=== PATIENT | male | born 1945 | race Caucasian/White ===

== ENCOUNTER 2018-04-17 10:24 | Emergency (ER) | payer MEDICARE, MEDICAID ==
[~2018-04-17] VITALS: Ht 160 cm; Wt 58.0 kg
[2018-04-17 10:39] VITALS: BP 110/73
[2018-04-17] MEDS ORDERED: ALBUTEROL (0.083%) 2.5MG/3ML NEB HHN STA (15:40)
[2018-04-17] MEDS ORDERED: IPRATROPIUM BROMIDE (0.02%) 0.5MG/2.5ML NEB HHN STA (15:40)
[2018-04-17] MEDS ORDERED: PREDNISONE 20MG TABLET PO STA (15:40)
== END 2018-04-17 17:23 | disposition home or self-care (01) ==
LOC: ER 10:48
DX: J44.1 Chronic obstructive pulmonary disease with (acute) exacerbation (principal); R07.89 Other chest pain; R03.0 Elevated blood-pressure reading, without diagnosis of hypertension
CPT/HCPCS: 71045; 93005; 94640; 99283; J7512; J7611

== ENCOUNTER → 2018-11-07 | Outpatient (CLI) | payer MEDICARE, MEDICAID | END | disposition home or self-care (01) | LOC: CT 11:27 | PROVIDERS: ATTEND Internal Medicine Critical Care Medicine | DX: J43.9 Emphysema, unspecified (principal) | CPT/HCPCS: 71250 ==

== ENCOUNTER → 2019-08-15 | Outpatient (CLI) | payer MEDICARE, MEDICAID | END | disposition home or self-care (01) | LOC: LAB 10:47 | PROVIDERS: ATTEND Internal Medicine Nephrology | DX: Z03.818 Encounter for observation for suspected exposure to other biological agents ruled out (principal); R80.9 Proteinuria, unspecified; Z94.0 Kidney transplant status | CPT/HCPCS: U0003-CS ==

== ENCOUNTER 2019-08-19 08:03 | Day surgery (SDC) | payer MEDICARE, MEDICAID ==
[~2019-08-19] VITALS: Ht 160 cm; Wt 53.5 kg
[2019-08-19] VITALS (10 sets, daily range): BP systolic 153–178; BP diastolic 94–106
[2019-08-19] MEDS ORDERED: SODIUM BICARBONATE 4% (2.4MEQ) 5ML VIAL IV ONE (08:48)
[2019-08-19] MEDS ORDERED: LIDOCAINE HCL 1% 20ML VIAL (Pyxis) INJ ONE (08:48)
[2019-08-19] MEDS ORDERED: FENTANYL CITRATE/PF 50MCG/ML 2ML VIAL ONE (08:48)
[2019-08-19] MEDS ORDERED: HYDROCODONE/ACETAMINOPHEN 5/325MG TABLET PO PRN (10:00)
[2019-08-19] MEDS ORDERED: FENTANYL CITRATE/PF 50MCG/ML 2ML VIAL IV SCH (10:00)
[2019-08-19 13:50] LABS: HEMATOCRIT 45.1 % (42.0-52.0); HEMOGLOBIN 15.1 g/dL (14.0-18.0)
== END 2019-08-19 14:30 | disposition home or self-care (01) ==
LOC: RAD 08:03
PROVIDERS: ATTEND Internal Medicine Nephrology
DX: R80.9 Proteinuria, unspecified (principal); Z79.899 Other long term (current) drug therapy
CPT/HCPCS: 36415; 50200; 76942; 85014; 85018; 88305; 88346; 88348; J3010; J3490; 88313

== ENCOUNTER 2022-02-27 06:04 | Inpatient (IN) | payer MEDICARE, MEDICAID ==
[~2022-02-27] VITALS: Ht 160 cm; Wt 54.5 kg
[2022-02-27] MEDS ORDERED: ACETAMINOPHEN 325MG TABLET PO ONE (06:30)
[2022-02-27 07:15] LABS: BG BASE EXCESS -0.2 mmol/L (-2.0-2.0); BG CARBOXYHEMOGLOBIN 0.6 % (0.5-1.5); BG DEOXYHEMOGLOBIN 3.2 % (0.0-5.0); BG FRACTION INSPIRED OXYGEN 21; BG HCO3 ACT 22.2 mmol/L (22.0-26.0); BG METHEMOGLOBIN 0.2 % (0.0-1.5); BG OXYGEN SATURATION 96.8 % (92.0-98.5); BG PCO2 30.2 mmHg (35.0-45.0); BG PH 7.485 (7.350-7.450); BG PO2 79.6 mmHg (75.0-100.0); BG SAMPLE SITE LEFT RADIAL; BG TOTAL HEMOGLOBIN 13.5 g/dL (12.0-18.0); BG VENT MODE ROOM AIR
[2022-02-27 09:33] LABS: BASOPHILS % 0.6 % (0.0-2.0); MONOCYTES % 7.6 % (2.0-8.0); RED BLOOD CELL COUNT 4.41 mill/uL (4.7-6.1)
[2022-02-27 09:36] LABS: EOSINOPHILS % 0.1 % (0.0-5.0); HEMATOCRIT. 41.5 % (42.0-52.0); HEMOGLOBIN. 13.5 g/dL (14.0-18.0); LYMPHOCYTES % 11.4 % (20.0-50.0); MEAN CORPUSCULAR HEMOGLOBIN 30.5 pg (28.0-32.0); NEUTROPHILS % 80.3 % (40.0-76.0); RED CELL DISTRIBUTION WIDTH 14.1 % (11.6-14.6)
[2022-02-27 09:39] LABS: CHLORIDE 109 mEq/L (98-107)
[2022-02-27] MEDS ORDERED: ACETAMINOPHEN 325MG TABLET PO NR (10:00)
[2022-02-27 10:39] LABS: PROTHROMBIN TIME 11.2 sec (9.6-11.0)
[2022-02-27 10:58] LABS: PLATELET 155 x1000/uL (130-400)
[2022-02-27] MEDS ORDERED: IPRATROPIUM/ALBUTEROL 0.5-3(2.5)MG/3ML NEB HHN PRN (12:15)
[2022-02-27] MEDS ORDERED: ONDANSETRON HCL 4MG/2ML INJ IV PRN (12:15)
[2022-02-27] MEDS ORDERED: PREDNISONE 5MG TABLET PO SCH (15:00)
[2022-02-27] MEDS ORDERED: CEFTRIAXONE 1 G PREMIX 50 ML IV SCH (15:00)
[2022-02-27] MEDS ORDERED: AZITHROMYCIN 500MG/250ML 250 ML IV NR (16:00)
[2022-02-27] MEDS: CYCLOSPORINE, MODIFIED 100MG CAPSULE PO SCH (21:00)
[2022-02-28] VITALS (7 sets, daily range): BP systolic 130–163; BP diastolic 75–106
[2022-02-28] MEDS: DEXAMETHASONE 10 MG/ML VIAL IV SCH ×3 (00:07→21:17)
[2022-02-28] MEDS: MYCOPHENOLATE MOFETIL 500MG TABLET PO SCH ×3 (00:11→21:17)
[2022-02-28] MEDS: ACETAMINOPHEN 325MG TABLET PO PRN (00:53)
[2022-02-28] MEDS ORDERED: ALBUTEROL 6.7GM HFA INHALER ORI PRN (01:00)
[2022-02-28] MEDS ORDERED: MAGN500C4 PO (03:07)
[2022-02-28] MEDS ORDERED: LOSA25TA3 PO (03:07)
[2022-02-28] MEDS ORDERED: CELL2 PO (03:07)
[2022-02-28] MEDS ORDERED: CYCL100C PO (03:07)
[2022-02-28] MEDS ORDERED: PRED5TAB48 PO (03:07)
[2022-02-28 06:58] LABS: BASOPHILS % 0.1 % (0.0-2.0); HEMATOCRIT. 39.2 % (42.0-52.0); HEMOGLOBIN. 12.9 g/dL (14.0-18.0); LYMPHOCYTES % 12.4 % (20.0-50.0); MEAN CORPUSCULAR HEMOGLOBIN 30.4 pg (28.0-32.0); MEAN CORPUSCULAR VOLUME 92.3 fL (80.0-94.0); MEAN PLATELET VOLUME 7.9 fl (7.4-10.4); MONOCYTES % 4.4 % (2.0-8.0); NEUTROPHILS % 83.1 % (40.0-76.0); PLATELET 153 x1000/uL (130-400); RED BLOOD CELL COUNT 4.25 mill/uL (4.7-6.1); RED CELL DISTRIBUTION WIDTH 14.1 % (11.6-14.6)
[2022-02-28 07:51] LABS: CHLORIDE 106 mEq/L (98-107)
[2022-02-28] MEDS: CEFTRIAXONE 1,000 MG in DEXTROSE 5% WATER 50 ML IV SCH (09:59)
[2022-02-28] MEDS: CYCLOSPORINE, MODIFIED 100MG CAPSULE PO SCH ×2 (09:59→17:41)
[2022-02-28] MEDS ORDERED: AZITHROMYCIN 500 MG in DEXT 5% WATER 250 ML IV SCH (10:00)
[2022-02-28] MEDS: AZITHROMYCIN 500 MG in DEXT 5% WATER 250 ML IV SCH (11:46)
[2022-02-28] MEDS ORDERED: CHOL400D7 PO (21:45)
[2022-02-28] MEDS ORDERED: ERYTHROMYCIN 0.5% (21:45)
[2022-02-28] MEDS ORDERED: FLUT1BLS INH (21:45)
[2022-02-28] MEDS ORDERED: CYAN250010 PO (21:45)
[2022-03-01] VITALS: BP 151/89
[2022-03-01] MEDS ORDERED: *PATIENT'S OWN MEDICATION STORAGE XX SCH (01:00)
[2022-03-01 04:00] VITALS: BP 143/84
[2022-03-01 08:00] VITALS: BP 138/87
[2022-03-01] MEDS ORDERED: HYDROCODONE/ACETAMINOPHEN 5/325MG TABLET PO PRN (08:00)
[2022-03-01] MEDS ORDERED: NALOXONE HCL 0.4MG/ML VIAL IV PRN (08:00)
[2022-03-01] MEDS: MYCOPHENOLATE MOFETIL 500MG TABLET PO SCH ×2 (08:30→22:52)
[2022-03-01] MEDS: DEXAMETHASONE 10 MG/ML VIAL IV SCH ×2 (08:30→22:09)
[2022-03-01] MEDS: CYCLOSPORINE, MODIFIED 100MG CAPSULE PO SCH ×2 (08:30→17:16)
[2022-03-01] MEDS: CEFTRIAXONE 1,000 MG in DEXTROSE 5% WATER 50 ML IV SCH (08:30)
[2022-03-01] MEDS: AZITHROMYCIN 500 MG in DEXT 5% WATER 250 ML IV SCH (11:55)
[2022-03-01 12:00] VITALS: BP 148/92
[2022-03-01] MEDS: CLONIDINE 0.1MG TABLET PO PRN ×2 (13:36→17:17)
[2022-03-01 16:00] VITALS: BP 140/100
[2022-03-01] MEDS: GUAIFENESIN/CODEINE 200-20MG/10ML UDC PO PRN ×2 (17:16→22:52)
[2022-03-01 20:00] VITALS: BP 134/91
[2022-03-02] VITALS: BP 135/85
[2022-03-02 04:00] VITALS: BP 139/92
[2022-03-02 08:00] VITALS: BP 149/85
[2022-03-02] MEDS: CEFTRIAXONE 1,000 MG in DEXTROSE 5% WATER 50 ML IV SCH (09:56)
[2022-03-02] MEDS: DEXAMETHASONE 10 MG/ML VIAL IV SCH ×2 (09:56→21:15)
[2022-03-02] MEDS: CYCLOSPORINE, MODIFIED 100MG CAPSULE PO SCH ×2 (09:57→17:18)
[2022-03-02] MEDS: MYCOPHENOLATE MOFETIL 500MG TABLET PO SCH (09:57)
[2022-03-02 10:00] LABS: BG CARBOXYHEMOGLOBIN 0.1 % (0.5-1.5); BG FRACTION INSPIRED OXYGEN 60; BG HCO3 ACT 21.2 mmol/L (22.0-26.0); BG METHEMOGLOBIN 0.2 % (0.0-1.5); BG OXYHEMOGLOBIN 92.7 % (94.0-97.0); BG PCO2 35.4 mmHg (35.0-45.0); BG PH 7.396 (7.350-7.450); BG PO2 65.6 mmHg (75.0-100.0); BG SAMPLE SITE RIGHT BRACHIAL; BG TOTAL HEMOGLOBIN 13.7 g/dL (12.0-18.0); BG VENT MODE MASK - SIMPLE
[2022-03-02] MEDS: AZITHROMYCIN 500 MG in DEXT 5% WATER 250 ML IV SCH (11:11)
[2022-03-02 12:00] VITALS: BP 143/89
[2022-03-02 16:00] VITALS: BP 131/77
[2022-03-02 20:00] VITALS: BP 153/95
[2022-03-03] VITALS: BP 137/89
[2022-03-03 04:00] VITALS: BP 144/91
[2022-03-03 08:00] VITALS: BP 172/106
[2022-03-03] MEDS: CEFTRIAXONE 1,000 MG in DEXTROSE 5% WATER 50 ML IV SCH (08:49)
[2022-03-03] MEDS: DEXAMETHASONE 10 MG/ML VIAL IV SCH ×2 (08:49→21:52)
[2022-03-03] MEDS: CYCLOSPORINE, MODIFIED 100MG CAPSULE PO SCH ×2 (08:49→17:22)
[2022-03-03] MEDS: CLONIDINE 0.1MG TABLET PO PRN ×2 (08:50→21:52)
[2022-03-03] MEDS: BENZONATATE 100MG CAPSULE PO PRN (08:51)
[2022-03-03] MEDS ORDERED: FUROSEMIDE 20MG/2ML VIAL IVP NR (09:30)
[2022-03-03] MEDS: AZITHROMYCIN 500 MG in DEXT 5% WATER 250 ML IV SCH (10:44)
[2022-03-03 11:48] LABS: HEMATOCRIT. 40.1 % (42.0-52.0); HEMOGLOBIN. 12.9 g/dL (14.0-18.0); MEAN CORPUSCULAR HEMOGLOBIN 29.5 pg (28.0-32.0); MEAN CORPUSCULAR VOLUME 91.6 fL (80.0-94.0); MEAN PLATELET VOLUME 8.1 fl (7.4-10.4); PLATELET 264 x1000/uL (130-400); RED BLOOD CELL COUNT 4.37 mill/uL (4.7-6.1); RED CELL DISTRIBUTION WIDTH 13.9 % (11.6-14.6)
[2022-03-03 12:00] VITALS: BP 156/105
[2022-03-03] MEDS ORDERED: BENZONATATE 100MG CAPSULE PO PRN (12:00)
[2022-03-03] MEDS: GUAIFENESIN 600MG ER TABLET PO SCH ×2 (12:07→21:52)
[2022-03-03] MEDS: ENOXAPARIN 40MG/0.4ML SYR SUBCUT SCH (12:11)
[2022-03-03 12:18] LABS: CHLORIDE 106 mEq/L (98-107)
[2022-03-03 12:32] LABS: PHOSPHORUS 2.7 mg/dL (2.5-4.9)
[2022-03-03 13:10] LABS: PLATELET ESTIMATE NORMAL
[2022-03-03 15:48] LABS: BG BASE EXCESS 0.7 mmol/L (-2.0-2.0); BG CARBOXYHEMOGLOBIN 0.6 % (0.5-1.5); BG HCO3 ACT 25.1 mmol/L (22.0-26.0); BG METHEMOGLOBIN 0.2 % (0.0-1.5); BG OXYHEMOGLOBIN 96.2 % (94.0-97.0); BG PCO2 39.4 mmHg (35.0-45.0); BG PH 7.422 (7.350-7.450); BG PO2 87.9 mmHg (75.0-100.0); BG SAMPLE SITE RIGHT BRACHIAL; BG TOTAL HEMOGLOBIN 14.4 g/dL (12.0-18.0); BG VENT MODE MASK - NRB
[2022-03-03 16:00] VITALS: BP 155/100
[2022-03-03 20:00] VITALS: BP 169/111
[2022-03-04] VITALS: BP 155/98
[2022-03-04 04:00] VITALS: BP 163/111
[2022-03-04] MEDS: CLONIDINE 0.1MG TABLET PO PRN ×2 (05:22→15:27)
[2022-03-04 06:53] LABS: HEMATOCRIT. 40.2 % (42.0-52.0); HEMOGLOBIN. 13.3 g/dL (14.0-18.0); MEAN CORPUSCULAR VOLUME 90.4 fL (80.0-94.0); PLATELET 269 x1000/uL (130-400); RED BLOOD CELL COUNT 4.45 mill/uL (4.7-6.1); RED CELL DISTRIBUTION WIDTH 13.8 % (11.6-14.6)
[2022-03-04 07:04] LABS: CHLORIDE 106 mEq/L (98-107)
[2022-03-04 07:10] LABS: PHOSPHORUS 2.8 mg/dL (2.5-4.9)
[2022-03-04 08:00] VITALS: BP 163/98
[2022-03-04] MEDS: CEFTRIAXONE 1,000 MG in DEXTROSE 5% WATER 50 ML IV SCH (09:06)
[2022-03-04] MEDS: ENOXAPARIN 40MG/0.4ML SYR SUBCUT SCH (09:07)
[2022-03-04] MEDS: DEXAMETHASONE 10 MG/ML VIAL IV SCH (09:07)
[2022-03-04] MEDS: GUAIFENESIN 600MG ER TABLET PO SCH ×2 (09:07→21:54)
[2022-03-04] MEDS: CYCLOSPORINE, MODIFIED 100MG CAPSULE PO SCH ×2 (09:07→17:04)
[2022-03-04 12:00] VITALS: BP 165/106
[2022-03-04] MEDS ORDERED: SODIUM CHLORIDE 10% FOR INH 15ML VIAL NEB INH NR (15:00)
[2022-03-04] MEDS: METHYLPREDNISOLONE SOD SUCC 125 MG/2 ML VIAL IV SCH ×2 (15:03→17:05)
[2022-03-04] MEDS: SULFAMETHOXAZOLE/TRIMETHOPRIM 800/160MG TABLET PO SCH ×2 (15:03→21:54)
[2022-03-04] MEDS: ALBUTEROL 6.7GM HFA INHALER ORI SCH ×2 (15:27→21:59)
[2022-03-04 16:00] VITALS: BP 171/106
[2022-03-04] MEDS: LOSARTAN POTASSIUM 25 MG TABLET PO SCH (17:04)
[2022-03-04] MEDS: AMLODIPINE 5MG TABLET PO SCH (17:05)
[2022-03-04 18:01] LABS: PLATELET ESTIMATE NORMAL
[2022-03-04] MEDS: PAXLOVID PO SCH (21:54)
[2022-03-05] VITALS (41 sets, daily range): BP systolic 122–156; BP diastolic 66–97
[2022-03-05] MEDS: METHYLPREDNISOLONE SOD SUCC 125 MG/2 ML VIAL IV SCH ×5 (00:44→23:22)
[2022-03-05] MEDS: ALBUTEROL 6.7GM HFA INHALER ORI SCH ×3 (04:23→21:00)
[2022-03-05] MEDS: SULFAMETHOXAZOLE/TRIMETHOPRIM 800/160MG TABLET PO SCH ×3 (06:47→21:54)
[2022-03-05] MEDS: BENZONATATE 100MG CAPSULE PO PRN (06:49)
[2022-03-05 07:18] LABS: HEMATOCRIT. 38.1 % (42.0-52.0); HEMOGLOBIN. 12.6 g/dL (14.0-18.0); MEAN CORPUSCULAR HEMOGLOBIN 29.9 pg (28.0-32.0); MEAN CORPUSCULAR VOLUME 90.5 fL (80.0-94.0); PLATELET 288 x1000/uL (130-400); RED BLOOD CELL COUNT 4.21 mill/uL (4.7-6.1); RED CELL DISTRIBUTION WIDTH 13.6 % (11.6-14.6)
[2022-03-05 07:37] LABS: CHLORIDE 105 mEq/L (98-107)
[2022-03-05 07:48] LABS: PHOSPHORUS 3.2 mg/dL (2.5-4.9)
[2022-03-05] MEDS: ENOXAPARIN 40MG/0.4ML SYR SUBCUT SCH (09:11)
[2022-03-05] MEDS: AMLODIPINE 5MG TABLET PO SCH (09:12)
[2022-03-05] MEDS: LOSARTAN POTASSIUM 25 MG TABLET PO SCH (09:12)
[2022-03-05] MEDS: GUAIFENESIN 600MG ER TABLET PO SCH ×2 (09:12→21:35)
[2022-03-05] MEDS: PAXLOVID PO SCH ×2 (09:13→21:36)
[2022-03-05 10:22] LABS: BG BASE EXCESS 2.9 mmol/L (-2.0-2.0); BG CARBOXYHEMOGLOBIN 0.3 % (0.5-1.5); BG FRACTION INSPIRED OXYGEN 100; BG HCO3 ACT 25.8 mmol/L (22.0-26.0); BG METHEMOGLOBIN 0.5 % (0.0-1.5); BG OXYGEN SATURATION 92.9 % (92.0-98.5); BG OXYHEMOGLOBIN 92.2 % (94.0-97.0); BG PCO2 34.3 mmHg (35.0-45.0); BG PH 7.494 (7.350-7.450); BG PO2 63.1 mmHg (75.0-100.0); BG SAMPLE SITE LEFT RADIAL; BG TOTAL HEMOGLOBIN 13.6 g/dL (12.0-18.0); BG VENT MODE HIGH FLOW
[2022-03-05] MEDS: CYCLOSPORINE, MODIFIED 100MG CAPSULE PO SCH ×2 (11:15→17:51)
[2022-03-05 19:13] LABS: PLATELET ESTIMATE NORMAL
[2022-03-05] MEDS: ACETAMINOPHEN 325MG TABLET PO PRN (22:04)
[2022-03-06] VITALS (78 sets, daily range): BP systolic 80–173; BP diastolic 45–107
[2022-03-06] MEDS: DIPHENHYDRAMINE 50MG/ML VIAL IV PRN ×2 (00:37→11:01)
[2022-03-06 05:58] LABS: HEMATOCRIT. 37.3 % (42.0-52.0); HEMOGLOBIN. 12.6 g/dL (14.0-18.0); MEAN CORPUSCULAR HEMOGLOBIN 30.5 pg (28.0-32.0); MEAN CORPUSCULAR VOLUME 90.7 fL (80.0-94.0); MEAN PLATELET VOLUME 8.1 fl (7.4-10.4); PLATELET 320 x1000/uL (130-400); RED BLOOD CELL COUNT 4.11 mill/uL (4.7-6.1); RED CELL DISTRIBUTION WIDTH 13.9 % (11.6-14.6)
[2022-03-06 06:00] LABS: PHOSPHORUS 3.5 mg/dL (2.5-4.9)
[2022-03-06] MEDS: METHYLPREDNISOLONE SOD SUCC 125 MG/2 ML VIAL IV SCH ×4 (06:36→23:34)
[2022-03-06] MEDS: SULFAMETHOXAZOLE/TRIMETHOPRIM 800/160MG TABLET PO SCH ×2 (06:37→20:09)
[2022-03-06 07:16] LABS: PLATELET ESTIMATE NORMAL
[2022-03-06] MEDS: LOSARTAN POTASSIUM 25 MG TABLET PO SCH (08:31)
[2022-03-06] MEDS: PAXLOVID PO SCH ×2 (08:31→20:09)
[2022-03-06] MEDS: CYCLOSPORINE, MODIFIED 100MG CAPSULE PO SCH ×2 (08:31→18:20)
[2022-03-06] MEDS: ENOXAPARIN 40MG/0.4ML SYR SUBCUT SCH (08:31)
[2022-03-06] MEDS: AMLODIPINE 5MG TABLET PO SCH (08:31)
[2022-03-06] MEDS: GUAIFENESIN 600MG ER TABLET PO SCH ×2 (08:31→20:08)
[2022-03-06] MEDS: ENOXAPARIN 30MG/0.3ML SYR SUBCUT SCH (09:00)
[2022-03-06] MEDS ORDERED: FENTANYL 2500MCG/250ML PMX 250 ML IV PRN (14:15)
[2022-03-06] MEDS ORDERED: DEXTROSE 50% WATER 50ML SYRINGE IV PRN ×2 (14:15→18:00)
[2022-03-06] MEDS ORDERED: LORAZEPAM 0.5MG TABLET PO PRN (14:15)
[2022-03-06] MEDS: PROPOFOL 10MG/ML 100ML 100 ML IV PRN (15:03)
[2022-03-06 15:22] LABS: BG BASE EXCESS -5.7 mmol/L (-2.0-2.0); BG CARBOXYHEMOGLOBIN 0.3 % (0.5-1.5); BG DEOXYHEMOGLOBIN 1.2 % (0.0-5.0); BG FRACTION INSPIRED OXYGEN 100; BG HCO3 ACT 23.6 mmol/L (22.0-26.0); BG METHEMOGLOBIN 0.7 % (0.0-1.5); BG OXYGEN SATURATION 98.8 % (92.0-98.5); BG OXYHEMOGLOBIN 97.8 % (94.0-97.0); BG PCO2 62.7 mmHg (35.0-45.0); BG PH 7.194 (7.350-7.450); BG PO2 185.1 mmHg (75.0-100.0); BG SAMPLE SITE LEFT RADIAL; BG VENT MODE VENT - AC
[2022-03-06] MEDS ORDERED: BLOOD SUGAR DIAGNOSTIC STRIP TEST SCH (16:30)
[2022-03-06] MEDS ORDERED: INSULIN LISPRO 100 UNITS/ML SUBCUT SCH (17:00)
[2022-03-06] MEDS: PANTOPRAZOLE SODIUM 40 MG/VIAL IV SCH (17:24)
[2022-03-06 19:03] LABS: BG BASE EXCESS -10.9 mmol/L (-2.0-2.0); BG CARBOXYHEMOGLOBIN 0.3 % (0.5-1.5); BG DEOXYHEMOGLOBIN 1.4 % (0.0-5.0); BG FRACTION INSPIRED OXYGEN 100; BG HCO3 ACT 19.5 mmol/L (22.0-26.0); BG METHEMOGLOBIN 0.7 % (0.0-1.5); BG OXYGEN SATURATION 98.6 % (92.0-98.5); BG OXYHEMOGLOBIN 97.6 % (94.0-97.0); BG PCO2 63.9 mmHg (35.0-45.0); BG PH 7.103 (7.350-7.450); BG PO2 180.9 mmHg (75.0-100.0); BG SAMPLE SITE LEFT BRACHIAL; BG TOTAL HEMOGLOBIN 14.4 g/dL (12.0-18.0); BG VENT MODE VENT - AC
[2022-03-06] MEDS: ALBUTEROL 6.7GM HFA INHALER ORI SCH (20:23)
[2022-03-06] MEDS: SODIUM CHLORIDE 0.9% 1,000 ML IV SCH (21:05)
[2022-03-06] MEDS: BLOOD SUGAR DIAGNOSTIC STRIP TEST SCH (23:29)
[2022-03-06] MEDS: PHENYLEPHRINE 100 MG in DEXT 5% WATER 240 ML IV PRN (23:34)
[2022-03-06] MEDS: INSULIN LISPRO 100 UNITS/ML SUBCUT SCH (23:35)
[2022-03-07] VITALS (130 sets, daily range): BP systolic 65–143; BP diastolic 43–85
[2022-03-07] MEDS: IPRATROPIUM/ALBUTEROL 0.5-3(2.5)MG/3ML NEB HHN SCH ×6 (00:20→21:10)
[2022-03-07] MEDS: METHYLPREDNISOLONE SOD SUCC 125 MG/2 ML VIAL IV SCH ×4 (05:10→23:28)
[2022-03-07] MEDS: SODIUM CHLORIDE 0.9% 1,000 ML IV SCH (05:10)
[2022-03-07] MEDS: BLOOD SUGAR DIAGNOSTIC STRIP TEST SCH ×4 (05:10→23:27)
[2022-03-07] MEDS: PROPOFOL 10MG/ML 100ML 100 ML IV PRN ×2 (05:11→13:28)
[2022-03-07] MEDS: INSULIN LISPRO 100 UNITS/ML SUBCUT SCH ×4 (05:11→23:28)
[2022-03-07 06:13] LABS: HEMATOCRIT. 40.3 % (42.0-52.0); HEMOGLOBIN. 12.9 g/dL (14.0-18.0); MEAN CORPUSCULAR HEMOGLOBIN 30.2 pg (28.0-32.0); MEAN CORPUSCULAR VOLUME 93.9 fL (80.0-94.0); MEAN PLATELET VOLUME 8.2 fl (7.4-10.4); PLATELET 363 x1000/uL (130-400); RED BLOOD CELL COUNT 4.29 mill/uL (4.7-6.1); RED CELL DISTRIBUTION WIDTH 14.6 % (11.6-14.6)
[2022-03-07 08:06] LABS: NUCLEATED RED BLOOD CELLS 2 /100 WBC
[2022-03-07 08:07] LABS: PLATELET ESTIMATE NORMAL
[2022-03-07] MEDS: CYCLOSPORINE, MODIFIED 100MG CAPSULE PO SCH ×3 (08:12→17:38)
[2022-03-07] MEDS: GUAIFENESIN 600MG ER TABLET PO SCH ×3 (08:12→20:20)
[2022-03-07] MEDS: SULFAMETHOXAZOLE/TRIMETHOPRIM 800/160MG TABLET PO SCH ×4 (08:13→23:27)
[2022-03-07] MEDS: AMLODIPINE 5MG TABLET PO SCH (08:13)
[2022-03-07] MEDS: PAXLOVID PO SCH ×2 (08:13→09:00)
[2022-03-07] MEDS: PANTOPRAZOLE SODIUM 40 MG/VIAL IV SCH (08:17)
[2022-03-07] MEDS: ENOXAPARIN 30MG/0.3ML SYR SUBCUT SCH (08:18)
[2022-03-07 08:23] LABS: BG BASE EXCESS -6.4 mmol/L (-2.0-2.0); BG CARBOXYHEMOGLOBIN 0.3 % (0.5-1.5); BG DEOXYHEMOGLOBIN 1.5 % (0.0-5.0); BG HCO3 ACT 21.5 mmol/L (22.0-26.0); BG METHEMOGLOBIN 0.5 % (0.0-1.5); BG OXYGEN SATURATION 98.5 % (92.0-98.5); BG OXYHEMOGLOBIN 97.7 % (94.0-97.0); BG PCO2 52.7 mmHg (35.0-45.0); BG PH 7.229 (7.350-7.450); BG PO2 147.2 mmHg (75.0-100.0); BG SAMPLE SITE RIGHT RADIAL; BG VENT MODE VENT - AC
[2022-03-07] MEDS: SODIUM POLYSTYRENE SULFONATE 15 G/60 ML BOT PO NR ×3 (09:43→12:04)
[2022-03-07 12:27] LABS: BG BASE EXCESS -8.9 mmol/L (-2.0-2.0); BG CARBOXYHEMOGLOBIN 0.4 % (0.5-1.5); BG DEOXYHEMOGLOBIN 2.3 % (0.0-5.0); BG FRACTION INSPIRED OXYGEN 100; BG HCO3 ACT 18.1 mmol/L (22.0-26.0); BG METHEMOGLOBIN 0.7 % (0.0-1.5); BG OXYGEN SATURATION 97.7 % (92.0-98.5); BG OXYHEMOGLOBIN 96.6 % (94.0-97.0); BG PCO2 42.8 mmHg (35.0-45.0); BG PH 7.243 (7.350-7.450); BG PO2 102.8 mmHg (75.0-100.0); BG SAMPLE SITE LEFT RADIAL; BG TOTAL HEMOGLOBIN 13.4 g/dL (12.0-18.0); BG TOTAL RESPIRATORY RATE 40 b/min; BG VENT MODE VENT - AC
[2022-03-07] MEDS ORDERED: SODIUM BICARBONATE 8.4% 1 MEQ/ML 50ML SYR IV NR (13:00)
[2022-03-07] MEDS ORDERED: NOREPINEPHRINE 32 MG in DEXT 5% WATER 218 ML IV PRN (15:45)
[2022-03-07] MEDS ORDERED: PROPOFOL 10MG/ML 100ML 100 ML IV PRN (15:45)
[2022-03-07 18:18] LABS: HEPATITIS B SURFACE ANTIGEN NEGATIVE
[2022-03-08] VITALS (125 sets, daily range): BP systolic 76–154; BP diastolic 36–104
[2022-03-08] MEDS: IPRATROPIUM/ALBUTEROL 0.5-3(2.5)MG/3ML NEB HHN SCH ×6 (00:54→20:41)
[2022-03-08] MEDS: PHENYLEPHRINE 100 MG in DEXT 5% WATER 240 ML IV PRN (05:03)
[2022-03-08] MEDS: BLOOD SUGAR DIAGNOSTIC STRIP TEST SCH ×4 (05:17→23:42)
[2022-03-08] MEDS: METHYLPREDNISOLONE SOD SUCC 125 MG/2 ML VIAL IV SCH ×4 (05:19→23:42)
[2022-03-08] MEDS: INSULIN LISPRO 100 UNITS/ML SUBCUT SCH ×4 (05:20→23:42)
[2022-03-08 05:51] LABS: HEMATOCRIT. 36.2 % (42.0-52.0); HEMOGLOBIN. 11.8 g/dL (14.0-18.0); MEAN CORPUSCULAR VOLUME 92.2 fL (80.0-94.0); MEAN PLATELET VOLUME 8.1 fl (7.4-10.4); PLATELET 251 x1000/uL (130-400); RED BLOOD CELL COUNT 3.93 mill/uL (4.7-6.1); RED CELL DISTRIBUTION WIDTH 14.9 % (11.6-14.6)
[2022-03-08 06:21] LABS: PHOSPHORUS 6.9 mg/dL (2.5-4.9)
[2022-03-08 07:00] LABS: NUCLEATED RED BLOOD CELLS 1 /100 WBC; PLATELET ESTIMATE NORMAL
[2022-03-08] MEDS: AMLODIPINE 5MG TABLET PO SCH (08:55)
[2022-03-08 09:10] LABS: CYCLOSPORINE 210 ng/mL (100-400)
[2022-03-08] MEDS ORDERED: MIDAZOLAM HCL 100 MG in SODIUM CHLORIDE 0.9% 80 ML IV PRN (10:30)
[2022-03-08] MEDS: GUAIFENESIN 600MG ER TABLET PO SCH ×2 (11:11→21:30)
[2022-03-08] MEDS: CYCLOSPORINE, MODIFIED 100MG CAPSULE PO SCH ×2 (11:11→17:23)
[2022-03-08] MEDS: ENOXAPARIN 30MG/0.3ML SYR SUBCUT SCH (11:11)
[2022-03-08] MEDS: PANTOPRAZOLE SODIUM 40 MG/VIAL IV SCH (11:11)
[2022-03-08] MEDS: SULFAMETHOXAZOLE/TRIMETHOPRIM 800/160MG TABLET PO SCH ×2 (11:12→21:29)
[2022-03-08 12:38] LABS: BG BASE EXCESS -2.6 mmol/L (-2.0-2.0); BG CARBOXYHEMOGLOBIN 0.3 % (0.5-1.5); BG DEOXYHEMOGLOBIN 1.8 % (0.0-5.0); BG FRACTION INSPIRED OXYGEN 100; BG HCO3 ACT 23.4 mmol/L (22.0-26.0); BG METHEMOGLOBIN 0.2 % (0.0-1.5); BG OXYGEN SATURATION 98.2 % (92.0-98.5); BG OXYHEMOGLOBIN 97.7 % (94.0-97.0); BG PCO2 45.1 mmHg (35.0-45.0); BG PH 7.333 (7.350-7.450); BG PO2 116.4 mmHg (75.0-100.0); BG SAMPLE SITE RIGHT FEMORAL; BG TOTAL HEMOGLOBIN 13.6 g/dL (12.0-18.0); BG VENT MODE VENT - AC
[2022-03-08] MEDS ORDERED: MICAFUNGIN 100 MG in SODIUM CHLORIDE 0.9% 100 ML IV SCH (17:00)
[2022-03-08] MEDS ORDERED: CEFEPIME 1,000 MG in DEXTROSE 5% WATER 50 ML IV SCH (18:00)
[2022-03-09] VITALS (94 sets, daily range): BP systolic 42–165; BP diastolic 18–111
[2022-03-09] MEDS: IPRATROPIUM/ALBUTEROL 0.5-3(2.5)MG/3ML NEB HHN SCH ×4 (00:23→11:37)
[2022-03-09 05:29] LABS: BASOPHILS % 0.2 % (0.0-2.0); HEMATOCRIT. 40.1 % (42.0-52.0); HEMOGLOBIN. 12.8 g/dL (14.0-18.0); LYMPHOCYTES % 0.6 % (20.0-50.0); MEAN CORPUSCULAR HEMOGLOBIN 30.2 pg (28.0-32.0); MEAN CORPUSCULAR VOLUME 94.6 fL (80.0-94.0); MEAN PLATELET VOLUME 8.4 fl (7.4-10.4); MONOCYTES % 2.1 % (2.0-8.0); NEUTROPHILS % 97.1 % (40.0-76.0); PLATELET 145 x1000/uL (130-400); RED BLOOD CELL COUNT 4.23 mill/uL (4.7-6.1); RED CELL DISTRIBUTION WIDTH 14.8 % (11.6-14.6)
[2022-03-09] MEDS: BLOOD SUGAR DIAGNOSTIC STRIP TEST SCH ×2 (05:59→11:20)
[2022-03-09] MEDS: INSULIN LISPRO 100 UNITS/ML SUBCUT SCH ×2 (05:59→07:02)
[2022-03-09] MEDS: METHYLPREDNISOLONE SOD SUCC 125 MG/2 ML VIAL IV SCH (06:00)
[2022-03-09] MEDS ORDERED: SODIUM BICARBONATE 8.4% 1 MEQ/ML 50ML SYR IV NR ×5 (06:30→14:45)
[2022-03-09] MEDS ORDERED: VASOPRESSIN 20 UNIT in SODIUM CHLORIDE 0.9% 99 ML IV PRN (06:45)
[2022-03-09] MEDS ORDERED: NOREPINEPHRINE 32 MG in DEXT 5% WATER 218 ML IV PRN (06:45)
[2022-03-09] MEDS ORDERED: CALCIUM GLUCONATE 100MG/ML 10ML VIAL IV NR (07:15)
[2022-03-09 07:55] LABS: BG BASE EXCESS -15.3 mmol/L (-2.0-2.0); BG CARBOXYHEMOGLOBIN 0.3 % (0.5-1.5); BG DEOXYHEMOGLOBIN 1.4 % (0.0-5.0); BG HCO3 ACT 13.3 mmol/L (22.0-26.0); BG METHEMOGLOBIN 0.4 % (0.0-1.5); BG OXYGEN SATURATION 98.6 % (92.0-98.5); BG OXYHEMOGLOBIN 97.9 % (94.0-97.0); BG PCO2 41.4 mmHg (35.0-45.0); BG PH 7.124 (7.350-7.450); BG PO2 161.6 mmHg (75.0-100.0); BG SAMPLE SITE RIGHT RADIAL; BG TOTAL HEMOGLOBIN 12.3 g/dL (12.0-18.0); BG VENT MODE VENT - AC
[2022-03-09] MEDS: PANTOPRAZOLE SODIUM 40 MG/VIAL IV SCH (08:12)
[2022-03-09] MEDS: GUAIFENESIN 600MG ER TABLET PO SCH (08:12)
[2022-03-09] MEDS: SULFAMETHOXAZOLE/TRIMETHOPRIM 800/160MG TABLET PO SCH (08:12)
[2022-03-09] MEDS: ENOXAPARIN 30MG/0.3ML SYR SUBCUT SCH (08:13)
[2022-03-09] MEDS: CYCLOSPORINE, MODIFIED 100MG CAPSULE PO SCH (08:14)
[2022-03-09] MEDS: AMLODIPINE 5MG TABLET PO SCH (08:14)
[2022-03-09] MEDS ORDERED: SODIUM BICARBONATE 100 MEQ in SODIUM CHLORIDE 0.45% 1,000 ML IV SCH (11:00)
[2022-03-09] MEDS: PHENYLEPHRINE 100 MG in DEXT 5% WATER 240 ML IV PRN (11:33)
[2022-03-09] MEDS ORDERED: CALCIUM GLUCONATE 1GM PREMIX 50 ML IV NR (13:30)
[2022-03-09] MEDS ORDERED: SODIUM POLYSTYRENE SULFONATE 15 G/60 ML BOT PO NR (13:45)
[2022-03-09] MEDS ORDERED: SODIUM BICARBONATE 150 MEQ in SODIUM CHLORIDE 0.45% 1,000 ML IV SCH (14:00)
[2022-03-09] MEDS ORDERED: METHYLPREDNISOLONE SOD SUCC 125 MG/2 ML VIAL IV SCH (14:00)
[2022-03-09 14:45] LABS: BG BASE EXCESS 0.5 mmol/L (-2.0-2.0); BG CARBOXYHEMOGLOBIN 0.7 % (0.5-1.5); BG DEOXYHEMOGLOBIN 11.2 % (0.0-5.0); BG FRACTION INSPIRED OXYGEN 80; BG HCO3 ACT 24.8 mmol/L (22.0-26.0); BG OXYGEN SATURATION 88.7 % (92.0-98.5); BG OXYHEMOGLOBIN 88.1 % (94.0-97.0); BG PCO2 39.1 mmHg (35.0-45.0); BG PH 7.421 (7.350-7.450); BG PO2 57.9 mmHg (75.0-100.0); BG SAMPLE SITE ALINE; BG TOTAL HEMOGLOBIN 12.5 g/dL (12.0-18.0); BG VENT MODE VENT - AC
[2022-03-09] MEDS ORDERED: AMIODARONE HCL 900 MG in DEXT 5% WATER 482 ML IV NR (15:00)
[2022-03-09] MEDS ORDERED: DEXTROSE 50% WATER 50ML SYRINGE IV NR (15:00)
[2022-03-09] MEDS ORDERED: INSULIN REGULAR (HUMULIN R) 300UNITS/3ML VIAL IV NR (15:00)
[2022-03-09] MEDS ORDERED: DOPAMINE 400MG/250ML PREMIX 250 ML IV PRN (15:45)
[2022-03-09 16:26] LABS: BG BASE EXCESS -7.7 mmol/L (-2.0-2.0); BG CARBOXYHEMOGLOBIN 0.4 % (0.5-1.5); BG DEOXYHEMOGLOBIN 33.4 % (0.0-5.0); BG FRACTION INSPIRED OXYGEN 100; BG HCO3 ACT 18.9 mmol/L (22.0-26.0); BG METHEMOGLOBIN 0.3 % (0.0-1.5); BG OXYGEN SATURATION 66.4 % (92.0-98.5); BG OXYHEMOGLOBIN 65.9 % (94.0-97.0); BG PCO2 42.7 mmHg (35.0-45.0); BG PH 7.264 (7.350-7.450); BG PO2 42.9 mmHg (75.0-100.0); BG SAMPLE SITE ALINE; BG TOTAL HEMOGLOBIN 10.2 g/dL (12.0-18.0); BG VENT MODE VENT - AC
== END 2022-03-09 16:16 | DRG 871 ==
LOC: ER 06:04 → EDBEDREQTM 10:26 → EDBEDREQSVC 10:26 → EDBEDREQ 10:26 → 7EST 11:32 → EDBEDREQ 11:35 → EDBEDREQTM 11:35 → MICUSO 03-05 10:31
PROVIDERS: ADMIT Family Medicine Adult Medicine; ATTEND Family Medicine Adult Medicine
PROC: 5A0945A Assistance with Respiratory Ventilation, 24-96 Consecutive Hours, High Flow/Velocity Cannula (ICD-10-PCS; 2022-03-04)
PROC: 5A1945Z Respiratory Ventilation, 24-96 Consecutive Hours (ICD-10-PCS; principal; 2022-03-06)
PROC: 0BH17EZ Insertion of Endotracheal Airway into Trachea, Via Natural or Artificial Opening (ICD-10-PCS; 2022-03-06)
PROC: 5A1D70Z Performance of Urinary Filtration, Intermittent, Less than 6 Hours Per Day (ICD-10-PCS; 2022-03-07)
PROC: 5A1D70Z Performance of Urinary Filtration, Intermittent, Less than 6 Hours Per Day (ICD-10-PCS; 2022-03-08)
PROC: 04HY32Z Insertion of Monitoring Device into Lower Artery, Percutaneous Approach (ICD-10-PCS; 2022-03-09)
PROC: 5A12012 Performance of Cardiac Output, Single, Manual (ICD-10-PCS; 2022-03-09)
PROC: 5A1D70Z Performance of Urinary Filtration, Intermittent, Less than 6 Hours Per Day (ICD-10-PCS; 2022-03-09)
DX: A41.89 Other specified sepsis (principal); E43 Unspecified severe protein-calorie malnutrition; J12.82 Pneumonia due to coronavirus disease 2019; J96.01 Acute respiratory failure with hypoxia; U07.1 COVID-19; N18.6 End stage renal disease; Z94.0 Kidney transplant status; I12.0 Hypertensive chronic kidney disease with stage 5 chronic kidney disease or end stage renal disease; N17.9 Acute kidney failure, unspecified; D84.9 Immunodeficiency, unspecified; E87.20 Acidosis, unspecified; D63.1 Anemia in chronic kidney disease; E78.5 Hyperlipidemia, unspecified; Z68.21 Body mass index [BMI] 21.0-21.9, adult; Z99.2 Dependence on renal dialysis; Z78.1 Physical restraint status; Z79.51 Long term (current) use of inhaled steroids; Z79.899 Other long term (current) drug therapy; Z82.49 Family history of ischemic heart disease and other diseases of the circulatory system
CPT/HCPCS: 31500; 36415; 36600; 71045; 71250; 76937; 78580; 80048; 80053; 80158; 82375; 82805; 82962; 83036; 83605; 83735; 84100; 84132; 84145; 84478; 85025; 86635; 86705; 86709; 86803; 87070; 87340; 87420; 87426; 87804; 90935; 93005; 93970; 94002; 94003; 94640; 94760; 99285; A6261; C1752; C1893; C9113; C9803; J0282; J0456; J0610; J0692; J0696; J1100; J1200; J1650; J1815; J1940; J2248; J2250; J2370; J2704; J2930; J3010; J3490; J7030; J7050; J7060; J7131; J7502; J7512; J7517; A4315